=== PATIENT | male | born 1985 | race Caucasian/White ===

== ENCOUNTER 2016-08-06 15:34 | Outpatient (CLI) | payer OTHER ==
--- NOTE | 2016-08-06 21:33 | MRI Report ---
EXAM: MRI LUMBAR SPINE WITHOUT CONTRAST EXAM DATE: 08/06/2016 04:21 PM. CLINICAL HISTORY: Chronic mid and low back pain. Report also of intermittent left side radicular symp toms. COMPARISON: None. TECHNIQUE: Multiplanar, multisequence T1-weighted and fluid-sensitive sequences of the lumbar spine f rom T12 to S1 without contrast. Other: None. FINDINGS: Spinal Cord: The conus terminates at L1. No signal abnormality in the visualized spinal cord. Alignment: Normal. No scoliosis or spondylolisthesis. Bone Marrow: Five [id number] lumbar vertebral bodies are assumed. No gross fractures or bone les ions. No bone marrow edema. Disk Levels/Facets: T12-L1: Unremarkable. L1-L2: Unremarkable. L2-L3: Unremarkable. L3-L4: Unremarkable. L4-L5: Unremarkable. L5-S1: Shallow midline posterior disk protrusion. Minimal thecal sac indentation. No nerve root impin gement or stenosis. Minimal early facet arthropathy may be present. Musculature: Normal. No edema or fatty atrophy. Other: None. IMPRESSION: Minimal early degenerative changes at L5-S1. No lumbar stenosis. Comment: The following findings are so common in adults without low back pain that while we report th eir presence, they must be interpreted with caution and in the context of the clinical situation. (Re jacey Gamboa et al, Spine 2001) Prevalence of findings in patients without low back pain: Disk degeneration (any evidence): 92% Disk desiccation/T2 signal loss: 83% Disk height loss: 56% Disk bulge: 64% Disk protrusion: 32% Annular tear/high intensity zone: 38% [facility] Referring Provider Line: [phone] SITE ID: [id number]
--- NOTE | 2016-08-06 21:59 | MRI Report ---
EXAM: MRI THORACIC SPINE WITHOUT CONTRAST EXAM DATE: 08/06/2016 04:22 PM. CLINICAL HISTORY: Mid and low back pain. Intermittent left side radiculopathy. COMPARISONS: None. TECHNIQUE: Multiplanar, multisequence T1-weighted and fluid-sensitive sequences of the thoracic spine from C7 to L1 without contrast. Other: None. FINDINGS: Spinal Cord: No signal abnormality in the visualized spinal cord. Alignment: Normal. No scoliosis or spondylolisthesis. Bone Marrow: No gross fractures or bone lesion. No bone marrow edema. Disk Levels/Facets: C7-T1: Unremarkable. T1-T2: Unremarkable. T2-T3: Unremarkable. T3-T4: Unremarkable. T4-T5: Unremarkable. T5-T6: Unremarkable. T6-T7: Unremarkable. T7-T8: Unremarkable. T8-T9: Unremarkable. T9-T10: Unremarkable. T10-T11: Unremarkable. T11-T12: Unremarkable. T12-L1: Unremarkable. Musculature: Normal. No edema or fatty atrophy. Other: Images 1, 2 and 3 of series 801 show 4 separate small rounded foci of T2 hyperintensity in the liver, 3-10 mm, likely small cysts. IMPRESSION: Unremarkable MRI appearance of the thoracic spine. No acute abnormality, degenerative stalin nges or stenosis. No focal thoracic cord lesion. [facility] Referring Provider Line: [phone] SITE ID: [id number]
== END 2016-08-06 15:35 | disposition home or self-care (01) ==
LOC: DI 15:34
PROVIDERS: ATTEND Anesthesiology
DX: M51.27 Other intervertebral disc displacement, lumbosacral region (principal); M47.897 Other spondylosis, lumbosacral region
CPT/HCPCS: 72146; 72148

== ENCOUNTER 2016-10-18 16:15 | Outpatient (CLI) | payer OTHER ==
--- NOTE | 2016-10-20 09:05 | MRI Report ---
EXAM: RIGHT FOREFOOT MRI WITHOUT CONTRAST EXAM DATE: 10/18/2016 05:27 PM. CLINICAL HISTORY: Right foot injury. COMPARISON: None. TECHNIQUE: Multiplanar, multisequence T1-weighted and fluid-sensitive sequences of the forefoot witho ut contrast. Other: None. FINDINGS: Bones: There is marked marrow edema of the medial sesamoid of the first metatarsal. There is a low T1 /low T2 signal line in the coronal plane, consistent with a nondisplaced fracture of the medial sesam oid. There is surrounding soft tissue edema. There are no other visible fractures. Joints: There is mild osteoarthritis of the first metatarsophalangeal joint. Articular Cartilage: Mild thinning of the hyaline cartilage of the first metatarsophalangeal joint. Ligaments: The visualized collateral ligaments are intact. Tendons: There is fluid surrounding the flexor hallucis longus tendon close to its distal insertion, consistent with mild tenosynovitis. There is a small partial-thickness tear of the tendon immediately proximal to the sesamoids. The remaining flexor and extensor tendons appear normal. Musculature: No edema or fatty atrophy. Other: No intermetatarsal bursitis. The subcutaneous tissues are unremarkable. IMPRESSION: 1. Nondisplaced fracture or stress fracture of the medial sesamoid of the first metatarsal. Surroundi ng soft tissue edema and mild tenosynovitis of the flexor hallucis longus. 2. Partial-thickness tear of the flexor hallucis longus immediately proximal to the sesamoids. [facility] MUSCULOSKELETAL RADIOLOGY SECTION Referring Provider Line: [phone] SITE ID: [id number]
== END 2016-10-18 16:16 | disposition home or self-care (01) ==
LOC: DI 16:15
PROVIDERS: ATTEND Podiatrist
DX: S92.311A Displaced fracture of first metatarsal bone, right foot, initial encounter for closed fracture (principal); M65.871 Other synovitis and tenosynovitis, right ankle and foot; S96.011A Strain of muscle and tendon of long flexor muscle of toe at ankle and foot level, right foot, initial encounter

== ENCOUNTER 2017-04-14 19:50 | Emergency (ER) | payer OTHER ==
--- NOTE | 2017-04-14 21:21 | ED Physician Documentation ---
History of Present Illness - Stated complaint Stated Complaint: NECK/FACE PX - Chief complaint Chief Complaint: Heent - History obtained from History obtained from: Patient - History of Present Illness Timing: How many weeks ago (2.5) Pain level max: 6 Pain level now: 6 Improved by: nothing Worsened by: nothing - Additonal information Additional information: aching pain, swelling to the L side of the neck x2.5 weeks[place] . Pain increased today. Taking motrin at home. No recent illness. Review of Systems Constitutional: denies: Fever, Chills Ears: denies: Ear pain Nose: denies: Rhinorrhea / runny nose, Congestion Throat: denies: Sore throat Cardiac: denies: Chest pain / pressure Respiratory: denies: Cough, Wheezing GI: denies: Abdominal Pain, Nausea, Vomiting, Diarrhea PD PAST MEDICAL HISTORY - Past Medical History Past Medical History: Yes Cardiovascular: Hypertension : Kidney stones Psych: Anxiety - Past Surgical History Past Surgical History: Yes - Present Medications Home Medications: Ambulatory Orders Medication Instructions Recorded Confirmed Escitalopram Oxalate [Lexapro] 1 tab PO DAILY 04/14/17 04/14/17 Lisinopril 1 tab PO DAILY 04/14/17 04/14/17 - Allergies Allergies/Adverse Reactions: Allergies Allergy/AdvReac Type Severity Reaction Status Date / Time No Known Drug Allergies Allergy Verified 04/14/17 20:08 - Social History Does the pt smoke?: No Smoking Status: Never smoker Does the pt drink ETOH?: Yes ETOH Use: Beer Does the pt have substance abuse?: No - Immunizations Immunizations are current?: Yes - POLST Patient has POLST: No PD ED PE NORMAL - Vitals Vital signs reviewed: Yes - General General: Alert and oriented X 3, No acute distress - HEENT HEENT: Ears normal, Moist mucous membranes, Pharynx benign - Neck Neck: Supple, no meningeal sign, Other (TTP over the L SCM. No swelling noted. No overlying skin changes. ) - Cardiac Cardiac: RRR, Strong equal pulses - Respiratory Respiratory: No respiratory distress, Clear bilaterally - Derm Derm: Warm and dry, No rash - Neuro Neuro: Alert and oriented X 3 - Psych Psych: Normal mood, Normal affect Results - Vitals Vitals: Vital Signs - 24 hr 04/14/17 04/14/17 20:04 23:26 Temperature 37.1 C 36.3 C L Heart Rate 76 65 Respiratory 16 18 Rate Blood Pressure 145/93 H 141/85 H O2 Saturation 97 98 Oxygen O2 Source Room air - Labs Labs: Laboratory Tests 04/14/17 04/14/17 21:27 21:27 WBC 7.0 RBC 4.47 L Hgb 14.9 Hct 42.4 MCV 94.9 H MCH 33.3 H MCHC 35.1 RDW 12.9 Plt Count 223 MPV 10.1 Neut # 3.6 Lymph # 2.7 [place] # 0.6 Eos # 0.1 Baso # 0.0 Absolute Nucleated RBC 0.01 Nucleated RBC % 0.1 Sodium 136 Potassium 3.9 Chloride 104 Carbon Dioxide 21 Anion Gap 11.0 BUN 15 Creatinine 0.9 Estimated GFR (MDRD) 99 Glucose 113 H Calcium 9.3 - Rads (name of study) L neck US Radiology: Prelim report reviewed, EMP read contemporaneously, See rad report ( normal lymph nodes. normal US.) PD MEDICAL DECISION MAKING - ED course Complexity details: reviewed results, re-evaluated patient, considered differential, d/w patient, d/w family ED course: Patient is a 31-year-old male who presents to the emergency department with reported left-sided neck swelling. No visible swelling on exam. Normal ultrasound. Normal lab work. Given dexamethasone and will follow up with his doctor. No changes with eating. No dental issues. No evidence of sialoadenitis. Patient counseled regarding signs and symptoms for which I believe and urgent re-evaluation would be necessary. Patient with good understanding of and agreement to plan and is comfortable going home at this time This document was made in part using voice recognition software. While efforts are made to proofread this document, sound alike and grammatical errors may occur. Departure - Departure Disposition: 01 Home, Self Care Clinical Impression: Neck swelling Condition: Good Follow-Up: Renard Lopez MD [Primary Care Provider] - Within 1 week Comments: Your ultrasound is normal today. Your laboratory tests are normal. The cause of your symptoms is unclear. Please follow-up with your doctor for further evaluation and care. The steroids that you are given tonight should help decrease any swelling and pain. Return if you worsen Discharge Date/Time: 04/14/17 23:29
[2017-04-14 21:44] LABS: CALCIUM 9.3 mg/dL (8.5-10.3); CREATININE 0.9 mg/dL (0.6-1.2)
[2017-04-14 21:48] LABS: BASOPHILS % (AUTO) 0.7 %; EOSINOPHILS # (AUTO) 0.1 10^3/uL (0.0-0.7); EOSINOPHILS % (AUTO) 1.2 %; HGB - HEMOGLOBIN 14.9 g/dL (14.0-18.0); LYMPHOCYTES # (AUTO) 2.7 10^3/uL (1.5-3.5); LYMPHOCYTES % (AUTO) 38.4 %; MEAN CORPUSCULAR HEMOGLOBIN 33.3 pg (27.0-31.0); MEAN CORPUSCULAR HGB CONC 35.1 g/dL (32.0-36.0); MEAN CORPUSCULAR VOLUME 94.9 fL (80.0-94.0); MEAN PLATELET VOLUME 10.1 fL (7.4-11.4); MONOCYTES # (AUTO) 0.6 10^3/uL (0.0-1.0); MONOCYTES % (AUTO) 8.4 %; NEUTROPHILS # (AUTO) 3.6 10^3/uL (1.5-6.6); NEUTROPHILS % (AUTO) 51.3 %; PLT - PLATELET COUNT 223 10^3/uL (130-450); RED BLOOD COUNT 4.47 10^6/uL (4.70-6.10); RED CELL DISTRIBUTION WIDTH 12.9 % (12.0-15.0)
--- NOTE | 2017-04-14 23:09 | Ultrasound Preliminary Report ---
Exam: US HEAD OR NECK SOFT TISSUE IMPRESSION: 1. Multiple normal-sized left submandibular and cervical lymph nodes measuring up to 7 mm on the shor t axis. [facility] SITE ID: [id number]
--- NOTE | 2017-04-14 23:09 | Ultrasound Report ---
EXAM: NECK ULTRASOUND EXAM DATE: 04/14/2017 11:00 PM. CLINICAL HISTORY: L sided neck swelling x 2.5 weeks. COMPARISON: None. TECHNIQUE: Real-time sonographic imaging was performed by the septic tank service technician utilizing color-flow. Multi ple contact representative static images were saved for review. FINDINGS: Multiple left submandibular and cervical lymph nodes are seen measuring up to 7 mm on the s hort axis. No fluid collection is identified. No other solid masses seen. IMPRESSION: 1. Multiple normal-sized left submandibular and cervical lymph nodes measuring up to 7 mm on the shor t axis. [facility] Referring Provider Line: [phone] SITE ID: [id number]
[2017-04-14] MEDS ORDERED: DEXAMETHASONE 10 MG/ML VIAL PO STA (23:19)
[2017-04-14 23:27] VITALS: BP 141/85
[2017-04-14] MEDS ORDERED: CHERRY SYRUP 10 ML UDC PO ONE (23:28)
== END 2017-04-14 23:29 | disposition home or self-care (01) ==
LOC: ED 19:50
DX: R22.1 Localized swelling, mass and lump, neck (principal); I10 Essential (primary) hypertension
CPT/HCPCS: 36415; 76536; 80048; 85025; 99283; A9270

== ENCOUNTER 2019-06-20 14:37 | Emergency (ER) | payer OTHER ==
--- NOTE | 2019-06-20 14:58 | ED Physician Documentation ---
PD HPI MHE - Stated complaint Stated Complaint: MHE - Chief complaint Chief Complaint: MHE - History obtained from History obtained from: Patient - History of Present Illness Primary symptom: Suicidal ideation Contributing factors: Work Recently seen: Not recently seen - Additional information Additional information: There is a 33-year-old man who is in the [employer] presents with complaints that [place] health [place] evaluation because he is having thoughts of harming himself. He thought about burning himself with a propane at night or. He has had thoughts of harming himself off and on for about 3 years but they just got much worse this weekend and he just wants everything over. [place] psychologist up until about 5 months ago but then that psychologist retired and he felt like he was doing better so he never went in for more counseling. He does see the psychiatrist for medication management he is on Lexapro for depression and generalized anxiety disorder and he has Klonopin to use as needed. He did take some over the weekend. He was drinking heavily over the weekend probably a 12 pack a day but does not drink on a daily basis. He denies any suicide attempt in the past. He is apparently been requesting inpatient treatment from the [facility] but has not felt the he was qualified. He is facing an administrative separation from the [employer] which is quite stressful he lives with his who has cancer and their 2 children. He just feels overwhelmed. He denies any acute illness: No sore throat, stuffy nose, fever, vomiting. Denies any history of thyroid disorder or diabetes. Review of Systems Constitutional: denies: Fever Ears: denies: Ear pain Nose: denies: Congestion Throat: denies: Sore throat Cardiac: denies: Chest pain / pressure Respiratory: denies: Dyspnea, Cough GI: denies: Nausea, Vomiting : denies: Dysuria Psychiatric: reports: Suicidal, Anxiety PD PAST MEDICAL HISTORY - Past Medical History Past Medical History: Yes Cardiovascular: Hypertension Respiratory: None Neuro: None : Kidney stones HEENT: None Psych: Depression, Anxiety, Panic attacks - Past Surgical History Past Surgical History: Yes - Present Medications Home Medications: Ambulatory Orders Medication Instructions Recorded Confirmed Escitalopram Oxalate [Lexapro] 10 mg PO DAILY 04/14/17 06/20/19 lisinopriL [Lisinopril] 20 mg PO DAILY 04/14/17 06/20/19 Hydrochlorothiazide 12.5 mg PO DAILY 06/20/19 06/20/19 clonazePAM [KlonoPIN] 0.5 mg PO BID PRN 06/20/19 06/20/19 - Allergies Allergies/Adverse Reactions: Allergies Allergy/AdvReac Type Severity Reaction Status Date / Time No Known Drug Allergies Allergy Verified 06/20/19 14:42 - Social History Does the pt smoke?: No Smoking Status: Never smoker Does the pt drink ETOH?: Yes ETOH Use: Beer Does the pt have substance abuse?: No - Immunizations Immunizations are current?: Yes - POLST Patient has POLST: No PD ED PE NORMAL - Vitals Vital signs reviewed: Yes - General General: Alert and oriented X 3, No acute distress, Well developed/nourished - HEENT HEENT: Atraumatic, PERRL, EOMI, Moist mucous membranes, Pharynx benign - Neck Neck: Supple, no meningeal sign, No adenopathy, Thyroid normal - Cardiac Cardiac: RRR, No murmur, Strong equal pulses, Other (He is mildly tachycardic) - Respiratory Respiratory: No respiratory distress, Clear bilaterally - Abdomen Abdomen: Normal bowel sounds, Soft, Non tender, No organomegaly - Derm Derm: Normal color, Warm and dry, No rash - Extremities Extremities: No deformity, Normal ROM s pain, No edema - Neuro Neuro: Alert and oriented X 3, national business director 2-12 intact, No motor deficit, No sensory deficit, Normal speech - Psych Psych: Other (Speech is little rapid. Does not make good eye contact.) Results - Vitals Vitals: Vital Signs - 24 hr 06/20/19 06/20/19 06/20/19 14:42 15:27 16:28 Temperature 37.3 C 37.3 C 37 C Heart Rate 107 H 116 H 102 H Respiratory 18 18 18 Rate Blood Pressure 137/94 H 145/93 H 136/79 H O2 Saturation 96 97 96 06/20/19 18:42 Temperature 37.1 C Heart Rate 124 H Respiratory 20 Rate Blood Pressure 134/76 H O2 Saturation 97 Oxygen O2 Source Room air - Labs Labs: Laboratory Tests 06/20/19 06/20/19 06/20/19 15:20 15:20 15:20 WBC 6.2 RBC 4.95 Hgb 16.1 Hct 45.2 MCV 91.3 MCH 32.5 H MCHC 35.6 RDW 12.3 Plt Count 268 MPV 10.9 Neut # (Auto) 2.2 Lymph # (Auto) 3.6 H [place] # (Auto) 0.4 Eos # (Auto) 0.0 Baso # (Auto) 0.0 Absolute Nucleated RBC 0.00 Nucleated RBC % 0.0 Sodium 137 Potassium 3.7 Chloride 99 L Carbon Dioxide 24 Anion Gap 14.0 H BUN 6 Creatinine 0.8 Estimated GFR (MDRD) 112 Glucose 151 H Calcium 9.2 Total Bilirubin 1.2 H AST 52 H ALT 71 H Alkaline Phosphatase 66 Total Protein 8.4 H Albumin 5.1 Globulin 3.4 Albumin/Globulin Ratio 1.5 Lipase 32 TSH 0.97 Urine Color Urine Clarity Urine pH Ur Specific Leslie Urine Protein Urine Glucose (UA) Urine Ketones Urine Occult Blood Urine Nitrite Urine Bilirubin Urine Urobilinogen Ur Leukocyte Esterase Ur Microscopic Review Urine Culture Comments Salicylates < 6.0 Urine Opiates Screen Ur Oxycodone Screen Urine Methadone Screen Ur Propoxyphene Screen Acetaminophen < 10 L Ur Barbiturates Screen Ur Tricyclics Screen Ur Phencyclidine Scrn Ur Amphetamine Screen U Methamphetamines Scrn U Benzodiazepines Scrn Urine Cocaine Screen U Cannabinoids Screen Ethyl Alcohol 189.5 06/20/19 06/20/19 15:20 15:20 WBC RBC Hgb Hct MCV MCH MCHC RDW Plt Count MPV Neut # (Auto) Lymph # (Auto) [place] # (Auto) Eos # (Auto) Baso # (Auto) Absolute Nucleated RBC Nucleated RBC % Sodium Potassium Chloride Carbon Dioxide Anion Gap BUN Creatinine Estimated GFR (MDRD) Glucose Calcium Total Bilirubin AST ALT Alkaline Phosphatase Total Protein Albumin Globulin Albumin/Globulin Ratio Lipase TSH Urine Color YELLOW Urine Clarity CLEAR Urine pH 7.0 Ur Specific Leslie 1.015 Urine Protein NEGATIVE Urine Glucose (UA) NEGATIVE Urine Ketones NEGATIVE Urine Occult Blood NEGATIVE Urine Nitrite NEGATIVE Urine Bilirubin NEGATIVE Urine Urobilinogen 0.2 (NORMAL) Ur Leukocyte Esterase NEGATIVE Ur Microscopic Review NOT INDICATED Urine Culture Comments NOT INDICATED Salicylates Urine Opiates Screen NEGATIVE Ur Oxycodone Screen NEGATIVE Urine Methadone Screen NEGATIVE Ur Propoxyphene Screen NEGATIVE Acetaminophen Ur Barbiturates Screen NEGATIVE Ur Tricyclics Screen NEGATIVE Ur Phencyclidine Scrn NEGATIVE Ur Amphetamine Screen NEGATIVE U Methamphetamines Scrn NEGATIVE U Benzodiazepines Scrn POSITIVE H Urine Cocaine Screen NEGATIVE U Cannabinoids Screen POSITIVE H Ethyl Alcohol 196.2 PD MEDICAL DECISION MAKING - ED course Complexity details: reviewed results, d/w patient ED course: Patient's blood alcohol was initially over 180. Drug screen was positive for marijuana. He started to have a little anxiety so he was given a the remainder of the screening labs were normal, with the exception of a mild elevation of the bilirubin and mild elevation of the liver enzymes. A repeat alcohol is been ordered and the patient will be turned over to the oncoming ER physician for further management and final disposition. 1848: The nursing staff just approached me stating that the patient was becoming more agitated he was very tremulous heart rate was up to 120 he is ordered for 2 mg of Ativan p.o. It is unclear how much of this is related alcohol withdrawal versus just anxiety.
[2019-06-20] MEDS ORDERED: SODIUM CHLORIDE 0.9% 1,000 ML IV ONE (15:09)
[2019-06-20 15:30] LABS: MUDS CUTOFF CONCENTRATIONS CUTOFF CONC BELOW:
[2019-06-20 15:43] LABS: BILIRUBIN,URINE NEGATIVE (NEGATIVE); GLUCOSE, URINE (UA) NEGATIVE (NEGATIVE); KETONES,URINE (UA) NEGATIVE (NEGATIVE); LEUKOCYTE ESTERASE, URINE NEGATIVE (NEGATIVE); NITRITE,URINE NEGATIVE (NEGATIVE); OCCULT BLOOD,URINE NEGATIVE (NEGATIVE); PROTEIN,URINE NEGATIVE (NEGATIVE); UROBILINOGEN,URINE 0.2 (NORMAL) E.U./dL (NORMAL)
[2019-06-20] MEDS ORDERED: LORazepam 2 MG/ML VIAL IVP STA (15:43)
[2019-06-20 15:44] LABS: CLARITY,URINE CLEAR (CLEAR)
[2019-06-20 15:45] LABS: BASOPHILS % (AUTO) 0.3 %; EOSINOPHILS % (AUTO) 0.3 %; HGB - HEMOGLOBIN 16.1 g/dL (14.0-18.0); LYMPHOCYTES # (AUTO) 3.6 10^3/uL (1.5-3.5); MEAN CORPUSCULAR HEMOGLOBIN 32.5 pg (27.0-31.0); MEAN CORPUSCULAR HGB CONC 35.6 g/dL (32.0-36.0); MEAN CORPUSCULAR VOLUME 91.3 fL (80.0-94.0); MEAN PLATELET VOLUME 10.9 fL (7.4-11.4); MONOCYTES # (AUTO) 0.4 10^3/uL (0.0-1.0); MONOCYTES % (AUTO) 6.3 %; NEUTROPHILS # (AUTO) 2.2 10^3/uL (1.5-6.6); NEUTROPHILS % (AUTO) 34.9 %; PLT - PLATELET COUNT 268 10^3/uL (130-450); RED BLOOD COUNT 4.95 10^6/uL (4.70-6.10); RED CELL DISTRIBUTION WIDTH 12.3 % (12.0-15.0); WHITE BLOOD COUNT 6.2 x10^3/uL (4.8-10.8)
[2019-06-20 15:47] LABS: ACETAMINOPHEN < 10 ug/mL (10-30); ALBUMIN 5.1 g/dL (3.2-5.5); ALBUMIN/GLOBULIN RATIO 1.5 (1.0-2.2); ALKALINE PHOSPHATASE 66 IU/L (42-121); ALT ALANINE AMINOTRANSFERASE 71 IU/L (10-60); AST ASPARTATE AMINOTRANSFERASE 52 IU/L (10-42); BILIRUBIN,TOTAL 1.2 mg/dL (0.2-1.0); BUN - BLOOD UREA NITROGEN 6 mg/dL (6-20); CALCIUM 9.2 mg/dL (8.5-10.3); CARBON DIOXIDE - CO2 24 mmol/L (21-32); CHLORIDE 99 mmol/L (101-111); CREATININE 0.8 mg/dL (0.6-1.2); GLUCOSE 151 mg/dL (70-100); LIPASE 32 U/L (22-51); SALICYLATE < 6.0 mg/dL; SODIUM 137 mmol/L (135-145); TOTAL PROTEIN 8.4 g/dL (6.7-8.2)
[2019-06-20 15:55] LABS: AMPHETAMINE SCREEN,URINE NEGATIVE (NEGATIVE); BENZODIAZEPINES SCREEN, URINE POSITIVE (NEGATIVE); COCAINE SCREEN URINE NEGATIVE (NEGATIVE); METHADONE SCREEN, URINE NEGATIVE (NEGATIVE); METHAMPHETAMINES SCREEN, URINE NEGATIVE (NEGATIVE); OPIATE SCREEN, URINE NEGATIVE (NEGATIVE); OXYCODONE SCREEN, URINE NEGATIVE (NEGATIVE); PROPOXYPHENE SCREEN, URINE NEGATIVE (NEGATIVE); TRICYCLIC ANTIDEPRESSANT,URINE NEGATIVE (NEGATIVE)
[2019-06-20] MEDS ORDERED: LORazepam 1 MG TABLET PO STA (18:47)
[2019-06-20] MEDS ORDERED: LORazepam 2 MG/ML VIAL ONE (20:48)
--- NOTE | 2019-06-21 00:37 | TELEPSYCH PHYS NOTE ---
Telepsych Note - CHIEF COMPLAINT/HX OF PRESENT ILLNESS Cheif Complaint and History of Present Illness: Name: Anthony Mascorro : 87 Date: 06/21/19 Location of patient: [facility] ED Time: 2:55am Location of doctor: [facility] This evaluation was conducted via telepsychiatry with the assistance of onsite staff Chief Complaint: SI History of Present Illness: Pt seen by televideo with help from the onsite staff. Pt is a 33 yo male with a hx of depression. Pt reports no previous of inpt psychiatric admissions. He is currently in the [place]. [place] Pt presented to the ED, seeking help and treatment for worsening depression, SI with specific plan. Noted a specific plan to burn himself with a propane clinical account liaison. Pt states that he has been experiencing waxing and waning depressive sxs for the past 3 years. States he is currently on Lexapro 20mg. States however he feels that he has been more activated and less inhibited on the medication. States that over the past few months his depression has been significantly worse. Cites mounting stressors and pressures. Stressors include his has stage 4 CA with liver Mets, facing administrative separation from the related to etoh abuse and fraternization, and financial concerns. States as the process has continued, he feels less optimistic about his chances. States he needs character witnesses and having a difficult time securing these. States he has a lot of guilt related to his behaviors and ultimately that he may be from the [employer] which will ultimately cause him to lose the insurance that his needs to fight her CA. States he is breaking and unable to cope. Pt admits that he has been drinking more excessively to self-medicate. On ROS, pt denies AVHs, delusions nor HI. Notes increasing SI and yesterday with SI with specific plan. Pt is presenting with significantly worsening depressive sxs in the context of mounting stressors and inability to cope. He presents as a danger to himself and will require acute inpt psychiatric admission for safety, stabilization and treatment. Pt is voluntary for inpt treatment. Collateral: Chart review and hospital staff. Also spoke to the pts , Gisselle @ [phone] who reports concerns for his safety. States he is not handling the stress in his life which is building. States he has been increasingly more depressed and she feels he needs the treatment. States he has been trying to get treatment or additional services. SI: increasing SI thoughts now with specific plan. Trauma history: denies Access to weapons: denies Legal: denies Psychiatric History/Treatment History: no inpt treatment. Current outpt treatment. Medical History: none acute reported Medications & Freq: lexapro 20mg po Daily Allergies: Mellaril, tetanus Substance Use: ETOH Family Psych History/History of suicide: none reported Social Hx: , active in the [employer], + children. Lives with family. MSE: Appearance and attire: hospital attire Attitude and behavior: cooperative Affect and mood: im going crazy / reactive. Speech: rapid Association and thought processes: disorganized Thought content paranoid and delusional. Denies SI/HI Perception: + AHs. Denies VHs. Sensorium, memory, and orientation: AxOx3 Intellectual functioning: unable to assess Insight and judgment: impaired. - SI/HI/SELF HARM SI/HI/SELF HARM (CURRENT OR HISTORY OF):: SI - PSYCHIATRIC HX/TREATMENT HX Psychiatric: Depression, Anxiety, Panic attacks - DRUG/ALCOHOL HX ETOH Use: Beer Number: 4 - MEDICAL HX Does the pt have a hx of MRSA?: No Neurological History: None Eyes, Ears, Nose, Throat: None Cardiovascular: Hypertension Respiratory: None Urinary: Kidney stones - HOME MEDICATIONS Home Meds (as last confirmed): Patient History Medication Instructions Recorded Confirmed Escitalopram Oxalate [Lexapro] 10 mg PO DAILY 04/14/17 06/20/19 lisinopriL [Lisinopril] 20 mg PO DAILY 04/14/17 06/20/19 Hydrochlorothiazide 12.5 mg PO DAILY 06/20/19 06/20/19 clonazePAM [KlonoPIN] 0.5 mg PO BID PRN 06/20/19 06/20/19 - ALLERGIES Allergies (as last confirmed): Allergies Allergy/AdvReac Type Severity Reaction Status Date / Time No Known Drug Allergies Allergy Verified 06/20/19 14:42 - TREATMENT/PHARMACOLOGICAL RECOMMENDATION Treatment - Pharmacological - Therapy Recommendations: Diagnosis: 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 He presents as a danger to himself and will require acute inpt psychiatric admission for safety, stabilization and treatment. Pt is voluntary for inpt treatment. Recommendations: Pt requires acute inpt psychiatric admission For safety, stabilization and treatment. Pt is voluntary for inpt treatment Should the pt no longer agree to voluntary admission, he cannot leave and will require involuntary placement. JOSEWA, per ED protocol. - TIME SPENT & PROVIDER LOCATION Telepsych consultation conducted via videoconferencing: Yes List names and roles of persons who participated in consult: alpa Mascorro Telepsych Provider Location: [place] Time Telepsych consult began: 02:55 Time Telepsych consult completed: 03:12
[2019-06-21] MEDS ORDERED: LORazepam 2 MG/ML VIAL IVP STA (06:29)
[2019-06-21 08:41] VITALS: BP 159/101
[2019-06-21] MEDS ORDERED: hydroCHLOROthiazide 25 MG TABLET PO STA (08:43)
[2019-06-21] MEDS ORDERED: lisinopriL 5 MG TABLET PO STA (08:43)
--- NOTE | 2019-06-21 09:45 | ED Physician Documentation ---
ED Addendum - Addendum Addendum: 06/21/19 09:44 The patient was resting comfortably this morning. He had gotten a dose of Ativan prior to change of shift this morning. He had not had his morning blood pressure medicines as yet so was given those at his regular doses. No further problems at this time and he is going to be picked up by a EMS for transfer for psychiatric hospitalization. Disposition transfer to psychiatric hospital in stable condition Diagnosis depression
== END 2019-06-21 09:40 ==
LOC: ED 14:37
DX: F32.9 Major depressive disorder, single episode, unspecified (principal); I10 Essential (primary) hypertension
CPT/HCPCS: 36415; 80320; 80329; 81003; 83690; 96361; 96374; 96376; 99284; 99285; A9270; J2060; J8499; 80053; 80306; 80307; 81001; 84443; 85025; 87086

== ENCOUNTER 2019-10-03 22:29 | Emergency (ER) | payer OTHER ==
[2019-10-03] MEDS ORDERED: KETOROLAC 30 MG/ML VIAL IVP STA (22:42)
[2019-10-03] MEDS ORDERED: ONDANSETRON 4 MG/2 ML VIAL IVP STA (22:42)
[2019-10-03] MEDS ORDERED: SODIUM CHLORIDE 0.9% 1,000 ML IV STA (22:42)
--- NOTE | 2019-10-03 22:45 | ED Physician Documentation ---
PD HPI ABD PAIN - Stated complaint Stated Complaint: RIGHT SIDE PX - Chief complaint Chief Complaint: Abd Pain - History obtained from History obtained from: Patient - History of Present Illness Timing - onset: Today Timing - duration: Minutes Timing - details: Abrupt onset, Still present Quality: Sharp, Pain Location: RLQ Radiation: Right flank Improved by: Other (nothing) Worsened by: Other (nothing) Associated symptoms: Nausea. No: Fever, Vomiting Similar symptoms before: Diagnosis (kidney stone on the left) Recently seen: Not recently seen - Additional information Additional information: Previously well 33-year-old male was having a bowel movement today when he finished having a bowel movement he developed some sharp pain in the right lower quadrant which radiated into the right flank. He has some nausea and pain in the right flank. Review of Systems Constitutional: denies: Fever, Chills, Myalgias Ears: denies: Ear pain Nose: denies: Congestion Throat: denies: Sore throat Respiratory: denies: Cough GI: reports: Abdominal Pain, Nausea. denies: Vomiting, Constipation, Diarrhea : denies: Dysuria, Frequency PD PAST MEDICAL HISTORY - Past Medical History Cardiovascular: Hypertension Respiratory: None Neuro: None : Kidney stones HEENT: None Psych: Depression, Anxiety, Panic attacks - Past Surgical History Past Surgical History: Yes - Present Medications Home Medications: Ambulatory Orders Medication Instructions Recorded Confirmed Escitalopram Oxalate [Lexapro] 10 mg PO DAILY 04/14/17 06/20/19 lisinopriL [Lisinopril] 20 mg PO DAILY 04/14/17 06/20/19 Hydrochlorothiazide 12.5 mg PO DAILY 06/20/19 06/20/19 clonazePAM [KlonoPIN] 0.5 mg PO BID PRN 06/20/19 06/20/19 Hydrocodone/Acetaminophen 1 - 2 each PO Q6H PRN #14 tablet 10/03/19 [Hydrocodon-Acetaminophen 5-325] Ondansetron Odt [Zofran] 4 mg TL Q6H PRN #10 tablet 10/04/19 - Allergies Allergies/Adverse Reactions: Allergies Allergy/AdvReac Type Severity Reaction Status Date / Time No Known Drug Allergies Allergy Verified 10/03/19 22:37 - Social History Does the pt smoke?: No Smoking Status: Never smoker Does the pt drink ETOH?: Yes Does the pt have substance abuse?: No - Immunizations Immunizations are current?: Yes - POLST Patient has POLST: No PD ED PE NORMAL - Vitals Vital signs reviewed: Yes (tachy and hypertensive ) - General General: Alert and oriented X 3, Well developed/nourished, Other (grunting in pain ) - HEENT HEENT: Atraumatic, PERRL, EOMI - Neck Neck: Supple, no meningeal sign, No bony TTP - Cardiac Cardiac: No murmur, Other (tachy to 100) - Respiratory Respiratory: No respiratory distress, Clear bilaterally - Abdomen Abdomen: Normal bowel sounds, Soft, Non tender, Non distended, No organomegaly - Back Back: No CVA TTP, No spinal TTP - Derm Derm: Normal color, Warm and dry, No rash - Extremities Extremities: No deformity, No edema, No calf tenderness / cord - Neuro Neuro: Alert and oriented X 3, 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, No motor deficit, No sensory deficit, Normal speech Eye Opening: Spontaneous Motor: Obeys Commands Verbal: Oriented GCS Score: 15 - Psych Psych: Normal mood, Normal affect Results - Vitals Vitals: Vital Signs - 24 hr 10/03/19 10/03/19 22:36 23:37 Temperature 37.2 C Heart Rate 110 H 90 Respiratory 20 18 Rate Blood Pressure 161/116 H 144/95 H O2 Saturation 99 98 Oxygen O2 Source Room air - Labs Labs: Laboratory Tests 10/03/19 10/03/19 10/03/19 22:38 22:38 23:56 WBC 8.2 RBC 4.52 L Hgb 14.7 Hct 39.6 L MCV 87.6 MCH 32.5 H MCHC 37.1 H RDW 12.6 Plt Count 238 MPV 11.1 Neut # (Auto) 3.9 Lymph # (Auto) 3.6 H [place] # (Auto) 0.5 Eos # (Auto) 0.1 Baso # (Auto) 0.0 Absolute Nucleated RBC 0.00 Nucleated RBC % 0.0 Sodium 139 Potassium 3.4 L Chloride 107 Carbon Dioxide 22 Anion Gap 10.0 BUN 15 Creatinine 1.3 H Estimated GFR (MDRD) 64 L Glucose 109 H Calcium 9.1 Total Bilirubin 0.8 AST 17 ALT 23 Alkaline Phosphatase 71 Total Protein 7.5 Albumin 4.5 Globulin 3.0 Albumin/Globulin Ratio 1.5 Lipase 35 Urine Color YELLOW Urine Clarity CLEAR Urine pH 5.5 Ur Specific Gobles >=1.030 H Urine Protein NEGATIVE Urine Glucose (UA) NEGATIVE Urine Ketones TRACE Urine Occult Blood LARGE H Urine Nitrite NEGATIVE Urine Bilirubin NEGATIVE Urine Urobilinogen 0.2 (NORMAL) Ur Leukocyte Esterase NEGATIVE Urine RBC TNTC H Urine WBC 0-3 Ur Squamous Epith Cells RARE Squamous Urine Bacteria Rare Ur Microscopic Review INDICATED Urine Culture Comments NOT INDICATED - Rads (name of study) CT ab/pel w/o Radiology: Prelim report reviewed (Impression: Distal right ureteral calculus. Mild right hydronephrosis and ureterectasis. Nonemergent/incidental findings in the report.), EMP read indepedently, See rad report Procedures - Bedside sono Bedside sono by EMP: With use of bedside ultrasound the right kidney is imaged it is sonographically nontender and there is evidence of hydronephrosis. PD MEDICAL DECISION MAKING - ED course Complexity details: reviewed old records, reviewed results, re-evaluated patient, considered differential, d/w patient ED course: 33-year-old male with acute right flank pain consistent with kidney stone has nonmodifiable pain has a nontender right kidney on sonographic palpation and has evidence of hydronephrosis. An IV is begun he is given a liter of saline 30 mg of Toradol and 4 mg of Zofran. A CT scan of the abdomen pelvis is undertaken. The CT confirms a stone in the right collecting system causing some hydro and about 3mm X 6mm at the UVJ. The patient requires dilaudid for pain control and has improvement with pain and blood pressure. Departure - Departure Disposition: 01 Home, Self Care Clinical Impression: Ureterolithiasis Condition: Stable Instructions: ED Stone Renal W Colic Follow-Up: Olman Phillips MD [Provider Admit Priv/Credential] - Prescriptions: Hydrocodone/Acetaminophen [Hydrocodon-Acetaminophen 5-325] 1 - 2 each PO Q6H PRN #14 tablet PRN Reason: pain Ondansetron Odt [Zofran] 4 mg TL Q6H PRN #10 tablet PRN Reason: Nausea / Vomiting
[2019-10-03 22:46] LABS: BASOPHILS % (AUTO) 0.5 %; EOSINOPHILS # (AUTO) 0.1 10^3/uL (0.0-0.7); EOSINOPHILS % (AUTO) 1.3 %; HGB - HEMOGLOBIN 14.7 g/dL (14.0-18.0); LYMPHOCYTES # (AUTO) 3.6 10^3/uL (1.5-3.5); LYMPHOCYTES % (AUTO) 43.9 %; MEAN CORPUSCULAR HEMOGLOBIN 32.5 pg (27.0-31.0); MEAN CORPUSCULAR HGB CONC 37.1 g/dL (32.0-36.0); MEAN CORPUSCULAR VOLUME 87.6 fL (80.0-94.0); MEAN PLATELET VOLUME 11.1 fL (7.4-11.4); MONOCYTES # (AUTO) 0.5 10^3/uL (0.0-1.0); MONOCYTES % (AUTO) 6.3 %; NEUTROPHILS # (AUTO) 3.9 10^3/uL (1.5-6.6); NEUTROPHILS % (AUTO) 47.8 %; PLT - PLATELET COUNT 238 10^3/uL (130-450); RED BLOOD COUNT 4.52 10^6/uL (4.70-6.10); RED CELL DISTRIBUTION WIDTH 12.6 % (12.0-15.0); WHITE BLOOD COUNT 8.2 x10^3/uL (4.8-10.8)
[2019-10-03 22:58] LABS: ALBUMIN 4.5 g/dL (3.2-5.5); ALBUMIN/GLOBULIN RATIO 1.5 (1.0-2.2); BILIRUBIN,TOTAL 0.8 mg/dL (0.2-1.0); CALCIUM 9.1 mg/dL (8.5-10.3); CREATININE 1.3 mg/dL (0.6-1.2); TOTAL PROTEIN 7.5 g/dL (6.7-8.2)
[2019-10-03] MEDS ORDERED: HYDROmorphone 1 MG/ML CARPUJECT IVP STA (23:06)
[2019-10-03 23:39] VITALS: BP 144/95
[2019-10-03] MEDS ORDERED: HYDROcod/ACET 5/325 Prepack 4 PO STA (23:50)
[2019-10-03 23:59] LABS: BILIRUBIN,URINE NEGATIVE (NEGATIVE); GLUCOSE, URINE (UA) NEGATIVE (NEGATIVE); KETONES,URINE (UA) TRACE mg/dL (NEGATIVE); LEUKOCYTE ESTERASE, URINE NEGATIVE (NEGATIVE); NITRITE,URINE NEGATIVE (NEGATIVE); OCCULT BLOOD,URINE LARGE (NEGATIVE); PH,URINE 5.5 PH (5.0-7.5); PROTEIN,URINE NEGATIVE (NEGATIVE); UROBILINOGEN,URINE 0.2 (NORMAL) E.U./dL (NORMAL)
[2019-10-04] LABS: CLARITY,URINE CLEAR (CLEAR)
[2019-10-04 00:07] LABS: BACTERIA,URINE Rare /HPF (None Seen); RBC,URINE TNTC /HPF (0-5); SQUAMOUS EPITHELIAL CELL,UR RARE Squamous (<= Few)
[2019-10-04] MEDS ORDERED: ONDANSETRON ODT 4 MG Prepack 2 TL PRN (00:14)
--- NOTE | 2019-10-04 08:25 | CT Report ---
PROCEDURE: Abdomen/Pelvis WO INDICATIONS: right flank pain TECHNIQUE: Noncontrast 5 mm thick sections acquired from the diaphragms to the symphysis. 5 mm coronal and sagi ttal reformats were then performed. For radiation dose reduction, the following was used: automated exposure control, adjustment of mA and/or kV according to patient size. COMPARISON: None. FINDINGS: Image quality: Excellent. ABDOMEN: Lung bases: Lung bases are clear. Heart size is normal. Solid organs: Liver and spleen are normal in size. A few scattered hepatic hypodensities are too sm all to accurately characterize but likely represent cysts versus hemangiomas. Gallbladder is decompre ssed. Pancreas is normal in contours. No adrenal nodules. There is a 3 mm nonobstructing left neph rolith. Left ureter is normal in course and caliber. No left hydronephrosis. On the right, there is a n obstructing 6 mm distal right ureteral stone with associated right hydroureteronephrosis. There are a few tiny punctate right renal stones. No significant right perinephric stranding. The spleen is at the upper limits of normal for size. Peritoneum and bowel: Unenhanced bowel loops demonstrate normal wall thickness and caliber. No free fluid or air. Nodes and vessels: No retroperitoneal or mesenteric adenopathy by size criteria. Aorta and inferior vena cava are normal in caliber. Miscellaneous: No ventral hernias. PELVIS: Genitourinary: Bladder wall thickness is normal. Miscellaneous: No inguinal hernias or adenopathy. Bones: No suspicious bony lesions. No vertebral body compression fractures. IMPRESSION: 1. Obstructing 6 mm distal right ureteral stone with associated right hydroureteronephrosis. 2. Small punctate bilateral renal stones. No hydronephrosis on the left. 3. Borderline splenomegaly. 4. Numerous scattered subcentimeter hepatic hypodensities which are too small to accurately character ize but likely represent cysts versus hemangiomas. No significant discrepancy with initial interpretation by overnight radiologist. Reviewed by: Dejuan Machado MD on 10/04/2019 8:24 AM PDT Approved by: Dejuan Machado MD on 10/04/2019 8:24 AM PDT Station ID: [id number]
== END 2019-10-04 00:22 | disposition home or self-care (01) ==
LOC: ED 22:29
DX: N13.2 Hydronephrosis with renal and ureteral calculous obstruction (principal); R00.0 Tachycardia, unspecified; I10 Essential (primary) hypertension
CPT/HCPCS: 36415; 74176; 80053; 81001; 83690; 85025; 96361; 96374; 96375; 99284; J1170; 81003; 87086

== ENCOUNTER 2019-10-05 07:17 | Emergency (ER) | payer OTHER ==
[2019-10-05] MEDS ORDERED: ONDANSETRON 4 MG/2 ML VIAL IVP STA ×2 (07:21→09:21)
[2019-10-05] MEDS ORDERED: HYDROmorphone 1 MG/ML CARPUJECT IVP STA ×2 (07:21→08:02)
[2019-10-05] MEDS ORDERED: SODIUM CHLORIDE 0.9% 1,000 ML IV STA (07:21)
--- NOTE | 2019-10-05 07:29 | ED Physician Documentation ---
PD HPI ABD PAIN - Stated complaint Stated Complaint: R SIDE PX - History obtained from History obtained from: Patient - Additional information Additional information: 33-year-old gentleman, active duty in the [employer], history of Left-sided lith otripsy and stenting in [place] a couple of years ago. He was seen here 2 days ago for right flank and abdominal pain and diagnosed with a 6 mm obstructing right UVJ stone. His creatinine was slightly high at that time at 1.3. And there was blood in the urine. The remainder of the work-up was negative. He was sent home with Vicodin. He has more severe pain still in the right lower quadrant and right side today with vomiting. Review of Systems Ten Systems: 10 systems reviewed and negative Constitutional: reports: Reviewed and negative Cardiac: denies: Chest pain / pressure, Palpitations Respiratory: denies: Dyspnea, Cough PD PAST MEDICAL HISTORY - Past Medical History Cardiovascular: Hypertension Respiratory: None Neuro: None : Kidney stones HEENT: None Psych: Depression, Anxiety, Panic attacks - Past Surgical History Past Surgical History: Yes - Present Medications Home Medications: Ambulatory Orders Medication Instructions Recorded Confirmed Escitalopram Oxalate [Lexapro] 10 mg PO DAILY 04/14/17 06/20/19 lisinopriL [Lisinopril] 20 mg PO DAILY 04/14/17 06/20/19 Hydrochlorothiazide 12.5 mg PO DAILY 06/20/19 06/20/19 clonazePAM [KlonoPIN] 0.5 mg PO BID PRN 06/20/19 06/20/19 Hydrocodone/Acetaminophen 1 - 2 each PO Q6H PRN #14 tablet 10/03/19 [Hydrocodon-Acetaminophen 5-325] Ondansetron Odt [Zofran] 4 mg TL Q6H PRN #10 tablet 10/04/19 Ketorolac [Toradol] 10 mg PO Q6H PRN #14 tablet 10/05/19 Ondansetron Odt [Zofran] 4 mg TL Q6H PRN #10 tablet 10/05/19 Oxycodone HCl/Acetaminophen 1 - 2 each PO Q6H PRN #20 tablet 10/05/19 [Percocet 5-325 mg Tablet] - Allergies Allergies/Adverse Reactions: Allergies Allergy/AdvReac Type Severity Reaction Status Date / Time No Known Drug Allergies Allergy Verified 10/05/19 07:45 - Social History Does the pt smoke?: No Smoking Status: Never smoker Does the pt drink ETOH?: Yes Does the pt have substance abuse?: No - Family History Family history: reports: Non contributory - Immunizations Immunizations are current?: Yes - POLST Patient has POLST: No PD ED PE NORMAL - Vitals Vital signs reviewed: Yes - General General: Alert and oriented X 3 (Appears uncomfortable) - HEENT HEENT: PERRL, EOMI - Neck Neck: Supple, no meningeal sign, No bony TTP - Cardiac Cardiac: RRR, No murmur - Respiratory Respiratory: No respiratory distress, Clear bilaterally - Abdomen Abdomen: Normal bowel sounds, Soft, Non tender - Back Back: No CVA TTP, No spinal TTP - Derm Derm: Normal color, Warm and dry - Extremities Extremities: No edema, No calf tenderness / cord - Neuro Neuro: Alert and oriented X 3, Normal speech Results - Vitals Vitals: Vital Signs - 24 hr 10/05/19 10/05/19 10/05/19 07:41 08:30 09:00 Temperature 36.7 C Heart Rate 104 H 88 66 Respiratory 18 18 16 Rate Blood Pressure 146/106 H 136/101 H 126/81 H O2 Saturation 99 100 93 Oxygen O2 Source Room air - Labs Labs: Laboratory Tests 10/05/19 07:38 Sodium 140 Potassium 3.3 L Chloride 107 Carbon Dioxide 22 Anion Gap 11.0 BUN 12 Creatinine 1.3 H Estimated GFR (MDRD) 64 L Glucose 118 H Calcium 8.8 PD MEDICAL DECISION MAKING - ED course ED course: 33-year-old gentleman with known 3 x 6 mm obstructing right UVJ stone. Creatinine stable from 2 days ago. Pain very difficult to control. Call placed to [facility] urology at 8:05 AM for consultation and possible transfer for removal. Spoke with Dr. Bolivar at [facility], felt there was no need for urgent transfer. Recommended escalation of pain medications and she he should call her office today. We were eventually able to control his pain here using multiple doses of medications, Departure - Departure Disposition: 01 Home, Self Care Clinical Impression: Ureterolithiasis Condition: Stable Record reviewed to determine appropriate education?: Yes Instructions: ED Stone Renal W Colic Follow-Up: Reanna Carvalho MD [Physician No Access] - Prescriptions: Oxycodone HCl/Acetaminophen [Percocet 5-325 mg Tablet] 1 - 2 each PO Q6H PRN #20 tablet PRN Reason: pain Ketorolac [Toradol] 10 mg PO Q6H PRN #14 tablet PRN Reason: Pain Ondansetron Odt [Zofran] 4 mg TL Q6H PRN #10 tablet PRN Reason: Nausea / Vomiting Comments: Call both your PCM and your primary care physician today for expedited follow- up. Return for new or worsening symptoms. Do not drink or drive while taking narcotic pain medication. Note that many narcotic pain relievers also contain Tylenol/acetaminophen. Please ensure that your total dose of acetaminophen from all sources does not exceed 3 g (3000 mg) per day. You may get constipated while on this medication. Take a stool softener such as Colace twice a day while you are on it. Also add an [id number] laxative such as senna or MiraLAX on any day that you do not have a bowel movement. If you received a narcotic pain medication or sedative while in the emergency department, do not drive for the next 24 hours. Forms: Activity restrictions
[2019-10-05 07:52] LABS: CALCIUM 8.8 mg/dL (8.5-10.3); CREATININE 1.3 mg/dL (0.6-1.2)
[2019-10-05] MEDS ORDERED: KETOROLAC 30 MG/ML VIAL IVP STA (08:02)
[2019-10-05] MEDS ORDERED: METOCLOPRAMIDE 10 MG/2 ML VIAL IVP STA (08:30)
[2019-10-05 09:39] VITALS: BP 123/62
== END 2019-10-05 09:45 | disposition home or self-care (01) ==
LOC: ED 07:17
DX: N20.1 Calculus of ureter (principal)
CPT/HCPCS: 36415; 80048; 96361; 96374; 96375; 96376; 99285; J1170; J2765

== ENCOUNTER 2019-11-01 07:10 | Day surgery (SDC) | payer OTHER ==
[2019-11-01] MEDS ORDERED: CEFAZOLIN SODIUM IN 0.9 % NACL 2 GM/100 ML BAG IV ONE (07:36)
[2019-11-01] MEDS ORDERED: LACTATED RINGERS 1,000 ML IV ONE ×2 (07:55→10:38)
[2019-11-01] MEDS ORDERED: BUPIVACAINE 0.25% PF 30 ML VIAL ONE (07:56)
--- NOTE | 2019-11-01 08:18 | ANESTHESIA ---
Pre-Anesthesia VS, & Labs - Diagnosis Cubital Tunnel Syndron - Procedure Left Cubital Tunnel Release Vital Signs: Temp Pulse Resp BP Pulse Ox 36.9 C 80 19 140/87 H 98 11/01/19 07:35 11/01/19 07:35 11/01/19 07:35 11/01/19 07:35 11/01/19 07:35 Height 5 ft 9 in Weight (kg) 95.25 kg Body Mass Index 31.0 Home Medications and Allergies Home Medications: Ambulatory Orders Mirtazapine [Remeron] 15 mg PO HS 10/25/19 Oxybutynin [Ditropan] 5 mg PO BID 10/25/19 Tamsulosin [Flomax] 0.4 mg PO ONCE 10/25/19 Topiramate [Topamax] 100 mg PO 10/25/19 buPROPion [Wellbutrin Sr] 150 mg PO BID 10/25/19 Mirtazapine [Remeron] 15 mg PO HS 10/25/19 Oxybutynin [Ditropan] 5 mg PO BID 10/25/19 Tamsulosin [Flomax] 0.4 mg PO ONCE 10/25/19 Topiramate [Topamax] 100 mg PO 10/25/19 buPROPion [Wellbutrin Sr] 150 mg PO BID 10/25/19 Allergies/Adverse Reactions: Allergies Allergy/AdvReac Type Severity Reaction Status Date / Time No Known Drug Allergies Allergy Verified 10/25/19 11:44 Anes History & Medical History - Anesthetic History Anesthesia Complications: reports: No previous complications Family history of Anesthesia Complications: Denies Family history of Malignant Hyperthermia: Denies - Medical History Cardiovascular: reports: None Pulmonary: reports: Sleep apnea, CPAP use Gastrointestinal: reports: None Urinary: reports: Kidney stones Neuro: reports: None Musculoskeletal: reports: None, Other Endocrine/Autoimmune: reports: None Blood Disorders: reports: None Skin: reports: None Smoking Status: Never smoker Psychosocial: reports: Depression, Anxiety - Surgical History Urologic: Kidney stents Orthopedic: Other Exam General: Alert, Oriented x3 Dental: WNL Mouth Openin Fingerbreadth Neck Mobility: Normal Mallampati classification: I Thyromental Distance: 4-6 cm Respiratory: Lungs clear, Normal breath sounds, No respiratory distress Cardiovascular: Regular rate, Normal S1, Normal S2, No murmurs Abdomen: Normal bowel sounds Mental/Cognitive Status: Alert/Oriented X3 Cognitive Status: Within normal limits Plan Anesthesia Type: General Consent for Procedure(s) Verified and Reviewed: Yes Code Status: Attempt Resuscitation ASA classification: 2-Mild systemic disease Is this case an emergency?: No
[2019-11-01] MEDS ORDERED: ONDANSETRON 4 MG/2 ML VIAL IVP PRN ×2 (08:45→09:58)
[2019-11-01] MEDS ORDERED: diphenhydrAMINE INJ 50 MG/ML VIAL IVP PRN (08:45)
[2019-11-01] MEDS ORDERED: ACETAMINOPHEN 1,000 MG/100 ML 100 ML IV ONE (08:45)
[2019-11-01] MEDS ORDERED: ePHEDrine 50 MG/ML VIAL IVP PRN (08:45)
[2019-11-01] MEDS ORDERED: NALOXONE 0.4 MG/ML VIAL IVP PRN (08:45)
[2019-11-01] MEDS ORDERED: MORPHINE 2 MG/ML CARPUJECT IVP PRN (08:45)
[2019-11-01] MEDS ORDERED: HYDROmorphone 0.5 MG/0.5 ML SYRINGE IVP PRN (08:45)
[2019-11-01] MEDS ORDERED: fentaNYL 100 MCG/2 ML VIAL IVP PRN (08:45)
[2019-11-01] MEDS ORDERED: ATROPINE ABBOJECT 1 MG/10 ML SYRINGE IVP PRN (08:45)
[2019-11-01] MEDS ORDERED: LACTATED RINGERS 1,000 ML IV SCH (09:00)
[2019-11-01] MEDS ORDERED: BUPIVACAINE 0.25% PF 30 ML VIAL SUBQ ONE (09:13)
[2019-11-01] MEDS ORDERED: oxyCODONE 5 MG TABLET PO PRN (09:58)
[2019-11-01] MEDS ORDERED: HYDROmorphone 0.5 MG/0.5 ML SYRINGE ONE (10:01)
[2019-11-01] MEDS ORDERED: KETOROLAC 30 MG/ML VIAL IVP ONE (10:01)
[2019-11-01] MEDS ORDERED: fentaNYL 100 MCG/2 ML VIAL ONE (10:01)
--- NOTE | 2019-11-01 10:07 | ANESTHESIA POST OP EVALUATION ---
Anesthesia Post Eval - Post Anesthesia Eval Vitals: Last Vital Signs Temp 36.0 C L 11/01/19 09:46 Pulse 96 11/01/19 09:50 Resp 16 11/01/19 09:50 BP 149/97 H 11/01/19 09:50 Pulse Ox 100 11/01/19 09:50 CV Function Including HR & BP: positive: Stable Pain Control: positive: Satisfactory Nausea & Vomiting: positive: Negative Mental Status: positive: Baseline Respiratory Status: Airway Patent Hydration Status: Satisfactory Anesthesia Complications: positive: None
--- NOTE | 2019-11-01 10:07 | OPERATIVE REPORT ---
Operative Report - Other Other Information/Narrative: Date of Surgery: 01 November 2019 Pre-Op Diagnosis: Left cubital tunnel syndrome Procedure: Left cubital tunnel release, in situ Postop Diagnosis: Same Primary Surgeon: Sabino Hernandez Secondary Surgeon: Irineo Vieyra Complications: None Tourniquet Time: 42 minutes at 200 mmHg EBL: 5 cc Findings: Ulnar nerve encased in fibrous tissue about the medial epicondyle, very irritable nerve Indication For Surgery: 33-year-old male with insidious onset ulnar-sided hand numbness and pain that was intermittent until about 2 to 3 months ago when it became more dense and constant. It did not respond to conservative measures. The risks, benefits, and alternatives were discussed. Risks include pain, bleeding, infection, damage to nearby structures to include nerves and blood vessels, numbness, lack of symptom relief, need for further surgery, DVT, PE, stroke, and . Written consent was obtained. Procedure in Detail: The patient was met in the pre-operative hold area on the day of the procedure. The operative extremity was signed and questions were answered. The patient was brought to the operating room and a general anesthetic was administered. Supine position was used and bony prominences were padded. Standard prepping and draping was performed. A sterile tourniquet was applied. A time out confirmed patient identification, laterality, procedure, allergies, antibiotics, and images. An Esmarch was used to exsanguinate the limb and the tourniquet was elevated to 250 mmHg. Total tourniquet time was [] minutes. A 7 cm incision was made along the course of the ulnar nerve just posterior to the medial epicondyle. Scissor dissection was carried out and branches of the medial antebrachial cutaneous nerve were identified and protected. Scissor dissection was carried down to the cubital tunnel and it was opened just anterior to the attachment of the ligament on the olecranon. I took care to stay posterior to prevent future subluxation of the nerve. The ulnar nerve was identified and the cubital tunnel was dissected distally very carefully. I encountered the initial sensory branch to the capsule and the motor branches to the FCU and protected them. I sharply transected the fascia over the FCU to gain further access to the ulnar nerve as it passed deep into the muscle. blunt dissection was used to dissect the muscle and exposed the nerve further. I then released the fascia deep to the muscle and ensured the nerve was freely mobile distally without any compression points. I then moved proximal and followed the nerve up the medial arm a few centimeters taking care to protect any cutaneous branches. I freed the nerve proximally 6 cm from the medial epicondyle. I took care to leave as many veins as possible attached to the nerve. I left the nerve attached to the deep tissues within the cubital tunnel and did not destabilize or neural lysis from all surrounding tissues. I then inspected deep to the nerve an did not find any protruding osteophytes. The course of the nerve was smooth and no bony resection was necessary. I then irrigated the wound copiously and took him through a full range of motion. The nerve had no compression points and it very mildly subluxated anteriorly, but there was no snapping at the medial epicondyle. I then loosely approximated the fascia to the posterior soft tissues to provide additional support. I again moved him through a full range of motion and the nerve glided smoothly without instability or compression points. The wound was then closed in a layered fashion with 2-0 Vicryl in the dermis and running Monocryl in the skin. A sterile dressing was then applied and a bulky dressing was placed with the elbow nearly fully extended. He was awakened and transferred to the recovery room Postoperative plan: Gentle range of motion from 0-2 weeks. Follow-up at 2 weeks to cut Monocryl suture ends and assess the wound. I will remove the bulky dressing at that time and advance range of motion. No strengthening until 6 weeks.
[2019-11-01] MEDS ORDERED: KETOROLAC 15 MG/ML VIAL ONE (10:09)
[2019-11-01] MEDS ORDERED: MIDAZOLAM 2 MG/2 ML VIAL IVP PRN (10:20)
[2019-11-01] MEDS ORDERED: MIDAZOLAM 2 MG/2 ML VIAL ONE (10:25)
[2019-11-01] MEDS ORDERED: oxyCODONE 5 MG TABLET ONE (11:09)
[2019-11-01 11:36] VITALS: BP 133/80
== END 2019-11-01 07:11 | disposition home or self-care (01) ==
LOC: SDS 07:10
PROVIDERS: ATTEND Orthopaedic Surgery
DX: G56.22 Lesion of ulnar nerve, left upper limb (principal); G47.30 Sleep apnea, unspecified

== ENCOUNTER 2019-12-23 09:26 | Outpatient (CLI) | payer OTHER ==
[2019-12-23] MEDS ORDERED: BUFFERED LIDOCAINE 10 ML SYRINGE ONE (09:37)
[2019-12-23] MEDS ORDERED: GADOBUTROL 7.5 MMOL/7.5 ML VIAL ONE (09:38)
[2019-12-23] MEDS ORDERED: GADOBUTROL 7.5 MMOL/7.5 ML VIAL IVP ONE (11:02)
[2019-12-23] MEDS ORDERED: BUFFERED LIDOCAINE 10 ML SYRINGE IU ONE (11:03)
[2019-12-23] MEDS ORDERED: iohexoL-240 10 ML VIAL IVP ONE (11:04)
--- NOTE | 2019-12-23 11:36 | XRAY Report ---
PROCEDURE: Arthrogram Needle Placement INDICATIONS: RIGHT SHOULDER PAIN CONTRAST: CONTRAST: omnipaque/gada FLUOROSCOPY TIME: FLUORO TIME: 0.44 min and NUMBER IMAGES: 2 TECHNIQUE: The indications, alternatives, benefits, risks, and complications of the procedure were explained to the patient. Written informed consent was obtained and placed in the chart. The shoulder was examin ed fluoroscopically and a site for needle placement chosen for entry into the glenohumeral joint from an anterior approach. The skin was prepped and draped in the usual fashion, and 1% lidocaine infilt rated from skin down to joint capsule. A spinal needle was inserted into the glenohumeral joint, and a small amount of iodinated contrast media injected to confirm intra-articular placement of the need le tip. This was followed by approximately 12 mL dilute solution of a gadolinium containing MR contr ast agent. The needle was removed and a dressing was applied. The patient was given postprocedural instructions and sent to the MR suite for MR imaging. FINDINGS: A single fluoroscopic spot image demonstrates intra-articular location of injected iodinated contrast . IMPRESSION: Successful fluoroscopically guided administration of dilute Gadolinium solution into the shoulder larry nt for MR arthrogram. Reviewed by: Jean Claude Galvez MD on 12/23/2019 11:35 AM PDT Approved by: Jean Claude Galvez MD on 12/23/2019 11:35 AM PDT Station ID: [id number]
--- NOTE | 2019-12-23 14:11 | MRI Report ---
PROCEDURE: Arthrogram Shoulder RT INDICATIONS: RIGHT SHOULDER PAIN TECHNIQUE: After the administration of 12 mL of dilute intra-articular Gadolinium contrast, oblique coronal T1 a nd T2 spin echo with fat saturation, oblique sagittal T1 spin echo with and without fat saturation, o blique sagittal T2 fast spin echo with fat saturation, axial T1 spin echo with fat saturation through the shoulder. COMPARISON: None. FINDINGS: Image quality: Diagnostic with mild motion artifact. Rotator cuff: There is mild tendinopathy of the supraspinatus and infraspinatus without a discrete te ar. The subscapularis and teres minor also appear intact. No rotator cuff muscle atrophy on sagittal images. Bones and bursae: No bone marrow contusions or fractures. There is mild acromioclavicular joint dege neration. The acromion demonstrates mild lateral downsloping, without an os acromiale. There is a sm all amount of contrast within the subacromial/subdeltoid bursa likely related to contrast injection. Capsule and soft tissues: The labrum appears intact. The glenoid attachment of the anterior inferio r glenohumeral ligament is attenuated in appearance suggestive of a sprain or mild partial tearing. T he long head of the biceps tendon demonstrates normal location and morphology. The biceps americo appe ars intact within the rotator interval. The coracohumeral ligament is of normal thickness. No intra- articular bodies. IMPRESSION: 1. Mild tendinopathy of the superior cuff without a discrete tear. 2. Mild acromioclavicular joint degeneration with mild lateral downsloping of the acromion. 3. Attenuated appearance of the clinoid attachment of the anterior inferior clinical humeral ligament suggestive of a sprain or mild partial tear. Reviewed by: Lukasz Nava MD on 12/23/2019 2:09 PM PDT Approved by: Lukasz Nava MD on 12/23/2019 2:09 PM PDT Station ID: [id number]
== END 2019-12-23 09:27 | disposition home or self-care (01) ==
LOC: DI 09:26
PROVIDERS: ATTEND Orthopaedic Surgery
DX: M75.81 Other shoulder lesions, right shoulder (principal); R93.6 Abnormal findings on diagnostic imaging of limbs
CPT/HCPCS: 23350; 73222; 77002; A9585; Q9966

== ENCOUNTER 2020-11-14 13:05 | Emergency (ER) | payer OTHER ==
[2020-11-14] MEDS ORDERED: PHENobarbital 65 MG/ML VIAL IV STA (14:01)
[2020-11-14] MEDS ORDERED: SODIUM CHLORIDE 0.9% 1,000 ML IV STA (14:01)
[2020-11-14 14:16] LABS: BASOPHILS % (AUTO) 0.5 %; EOSINOPHILS % (AUTO) 0.3 %; HCT - HEMATOCRIT 46.7 % (42.0-52.0); HGB - HEMOGLOBIN 17.1 g/dL (14.0-18.0); LYMPHOCYTES # (AUTO) 2.7 10^3/uL (1.5-3.5); LYMPHOCYTES % (AUTO) 34.9 %; MEAN CORPUSCULAR HEMOGLOBIN 33.5 pg (27.0-31.0); MEAN CORPUSCULAR HGB CONC 36.6 g/dL (32.0-36.0); MEAN CORPUSCULAR VOLUME 91.6 fL (80.0-94.0); MEAN PLATELET VOLUME 10.3 fL (7.4-11.4); MONOCYTES # (AUTO) 0.4 10^3/uL (0.0-1.0); MONOCYTES % (AUTO) 4.5 %; NEUTROPHILS # (AUTO) 4.6 10^3/uL (1.5-6.6); NEUTROPHILS % (AUTO) 59.5 %; PLT - PLATELET COUNT 257 10^3/uL (130-450); RED CELL DISTRIBUTION WIDTH 12.1 % (12.0-15.0); WHITE BLOOD COUNT 7.7 x10^3/uL (4.8-10.8)
[2020-11-14 14:29] LABS: ALBUMIN 5.1 g/dL (3.2-5.5); ALBUMIN/GLOBULIN RATIO 1.5 (1.0-2.2); BILIRUBIN,TOTAL 1.4 mg/dL (0.2-1.0); CALCIUM 9.1 mg/dL (8.5-10.3); CREATININE 0.7 mg/dL (0.6-1.2); ETOH - ETHANOL 279.1 mg/dL; TOTAL PROTEIN 8.4 g/dL (6.7-8.2)
[2020-11-14 16:07] LABS: MUDS CUTOFF CONCENTRATIONS CUTOFF CONC BELOW:
[2020-11-14 16:19] LABS: AMPHETAMINE SCREEN,URINE NEGATIVE (NEGATIVE); BARBITURATE SCREEN,UR POSITIVE (NEGATIVE); BENZODIAZEPINES SCREEN, URINE NEGATIVE (NEGATIVE); COCAINE SCREEN URINE NEGATIVE (NEGATIVE); METHADONE SCREEN, URINE NEGATIVE (NEGATIVE); METHAMPHETAMINES SCREEN, URINE NEGATIVE (NEGATIVE); OPIATE SCREEN, URINE NEGATIVE (NEGATIVE); THC CANNABINOID SCREEN, URINE NEGATIVE (NEGATIVE); TRICYCLIC ANTIDEPRESSANT,URINE NEGATIVE (NEGATIVE)
[2020-11-14 16:20] LABS: OXYCODONE SCREEN, URINE NEGATIVE (NEGATIVE); PROPOXYPHENE SCREEN, URINE NEGATIVE (NEGATIVE)
[2020-11-14 16:27] LABS: B. PARAPERTUSSIS- RESP PCR PAN NOT DETECTED; B. PERTUSSIS- RESP PCR PANEL NOT DETECTED; C. PNEUMONIAE- RESP PCR PANEL NOT DETECTED; CORONAVIRUS 229E-RESP PCR NOT DETECTED; CORONAVIRUS HKU1-RESP PCR NOT DETECTED; CORONAVIRUS NL63-RESP PCR NOT DETECTED; CORONAVIRUS OC43-RESP PCR NOT DETECTED; HUMAN METAPNEUMOVIRUS NOT DETECTED; INFLUENZA A- RESP PCR PANEL NOT DETECTED; INFLUENZA B - RESP PCR PANEL NOT DETECTED; M. PNEUMONIAE- RESP PCR PANEL NOT DETECTED; PARAINFLUENZA VIRUS 1 NOT DETECTED; PARAINFLUENZA VIRUS 2 NOT DETECTED; PARAINFLUENZA VIRUS 3 NOT DETECTED; PARAINFLUENZA VIRUS 4 NOT DETECTED; RHINOVIRUS/ENTEROVIRUS NOT DETECTED; RSV- RESP PCR PANEL NOT DETECTED; SARS-CoV-2 -RESP PCR PANEL NOT DETECTED
[2020-11-14] MEDS ORDERED: LORazepam 2 MG/ML VIAL IVP STA ×3 (16:27→23:27)
--- NOTE | 2020-11-14 19:38 | ED Physician Documentation ---
History of Present Illness - Stated complaint Stated Complaint: PALPUTATIONS - Chief complaint Chief Complaint: MHE - History obtained from History obtained from: Patient - Additonal information Additional information: Patient comes emergency department chief complaint of anxiety and depression, along with "I want to go to detox". Patient states is not feeling suicidal and his main concern is that he has been binge drinking for the last several months and feels as though he is getting out of control again. The patient has a history of alcohol abuse and has gone to detox and rehab before. He also has a history of inpatient psychiatric treatment for his anxiety and depression. The patient is in the [place] and states he feels desperate to get out and get back to where his family is in [facility]. He denies any substance abuse of any other kind. Patient states that his last drink was about 8:00 this morning. He states that he has been going on binges for anywhere from several days to some weeks, and then will leave off the drinking for anywhere from days to weeks. He states his last binge was about a week. He is beginning to feel a little bit shaky and has been feeling as though he is having palpitations. Review of Systems Ten Systems: 10 systems reviewed and negative Constitutional: reports: Reviewed and negative Eyes: reports: Reviewed and negative Ears: reports: Reviewed and negative Nose: reports: Reviewed and negative Throat: reports: Reviewed and negative Cardiac: reports: Palpitations Respiratory: reports: Reviewed and negative GI: reports: Reviewed and negative : reports: Reviewed and negative Skin: reports: Reviewed and negative Musculoskeletal: reports: Reviewed and negative Neurologic: reports: Reviewed and negative Psychiatric: reports: Reviewed and negative Endocrine: reports: Reviewed and negative Immunocompromised: reports: Reviewed and negative PD PAST MEDICAL HISTORY - Past Medical History Cardiovascular: None Respiratory: Sleep apnea, CPAP use Neuro: None Endocrine/Autoimmune: None GI: None : Kidney stones HEENT: None Psych: Depression, Anxiety, Other Musculoskeletal: None, Other Derm: None - Past Surgical History Past Surgical History: Yes Ortho: Other - Present Medications Home Medications: Ambulatory Orders Medication Instructions Recorded Confirmed Mirtazapine [Remeron] 15 mg PO HS 10/25/19 11/14/20 Topiramate [Topamax] 100 mg PO DAILY 10/25/19 11/14/20 buPROPion [Wellbutrin Sr] 150 mg PO BID 10/25/19 11/14/20 FLUoxetine [PROzac] 10 mg PO DAILY 11/14/20 11/14/20 Propranolol [Inderal] 10 mg PO DAILY PRN 11/14/20 11/14/20 - Allergies Allergies/Adverse Reactions: Allergies Allergy/AdvReac Type Severity Reaction Status Date / Time No Known Drug Allergies Allergy Verified 11/14/20 13:11 - Social History Does the pt smoke?: No Smoking Status: Never smoker Does the pt drink ETOH?: Yes Does the pt have substance abuse?: No - Immunizations Immunizations are current?: Yes - POLST Patient has POLST: No PD ED PE NORMAL - Vitals Vital signs reviewed: Yes - General General: Alert and oriented X 3, No acute distress, Well developed/nourished - HEENT HEENT: Atraumatic, PERRL, EOMI, Moist mucous membranes - Neck Neck: Supple, no meningeal sign - Cardiac Cardiac: No murmur, Strong equal pulses, Other (Mildly tachycardic rate, regular rhythm.) - Respiratory Respiratory: No respiratory distress, Clear bilaterally - Abdomen Abdomen: Soft, Non tender, Non distended - Derm Derm: Normal color, Warm and dry, No rash - Extremities Extremities: No deformity, No edema, No calf tenderness / cord - Neuro Neuro: Alert and oriented X 3, yard worker 2-12 intact, Normal speech - Psych Psych: Normal mood, Normal affect Results - Vitals Vitals: Vital Signs - 24 hr 11/14/20 11/14/20 11/14/20 13:13 20:30 21:28 Temperature 37.3 C Heart Rate 105 H 89 84 Respiratory 18 18 18 Rate Blood Pressure 148/98 H 149/88 H 149/88 H O2 Saturation 97 97 95 Oxygen O2 Source Room air - EKG (time done) 1317 Rate: Rate (enter#) (100) Rhythm: Sinus tachycardia [place] Line: Normal Intervals: Normal GA QRS: Normal Ischemia: Other (borderline ST elevation). No: ST elevation c/w ischemia, T wave inversion Compare to prior EKG: Old EKG unavailable - Labs Labs: Laboratory Tests 11/14/20 11/14/20 11/14/20 14:11 14:11 15:30 WBC 7.7 RBC 5.10 Hgb 17.1 Hct 46.7 MCV 91.6 MCH 33.5 H MCHC 36.6 H RDW 12.1 Plt Count 257 MPV 10.3 Neut # (Auto) 4.6 Lymph # (Auto) 2.7 Gaines # (Auto) 0.4 Eos # (Auto) 0.0 Baso # (Auto) 0.0 Absolute Nucleated RBC 0.00 Nucleated RBC % 0.0 Sodium 145 Potassium 4.0 Chloride 109 Carbon Dioxide 22 Anion Gap 14.0 H BUN 6 Creatinine 0.7 Estimated GFR (MDRD) 129 Glucose 117 H Calcium 9.1 Total Bilirubin 1.4 H AST 40 ALT 43 Alkaline Phosphatase 86 Total Protein 8.4 H Albumin 5.1 Globulin 3.3 Albumin/Globulin Ratio 1.5 Lipase 31 Nasal Adenovirus (PCR) NOT DETECTED Nasal B. parapertussis DNA (PCR) NOT DETECTED Nasal Coronavir 229E PCR NOT DETECTED Nasal Coronavir HKU1 PCR NOT DETECTED Nasal Coronavir NL63 PCR NOT DETECTED Nasal Coronavir OC43 PCR NOT DETECTED Nasal Enterovir/Rhinovir PCR NOT DETECTED Nasal Influenza B PCR NOT DETECTED Nasal Influenza A PCR NOT DETECTED Nasal Parainfluen 1 PCR NOT DETECTED Nasal Parainfluen 2 PCR NOT DETECTED Nasal Parainfluen 3 PCR NOT DETECTED Nasal Parainfluen 4 PCR NOT DETECTED Nasal RSV (PCR) NOT DETECTED Nasal B.pertussis DNA PCR NOT DETECTED Nasal C.pneumoniae (PCR) NOT DETECTED Gustavo Human Metapneumo PCR NOT DETECTED Nasal M.pneumoniae (PCR) NOT DETECTED Nasal SARS-CoV-2 (PCR) NOT DETECTED Urine Opiates Screen Ur Oxycodone Screen Urine Methadone Screen Ur Propoxyphene Screen Ur Barbiturates Screen Ur Tricyclics Screen Ur Phencyclidine Scrn Ur Amphetamine Screen U Methamphetamines Scrn U Benzodiazepines Scrn Urine Cocaine Screen U Cannabinoids Screen Ethyl Alcohol 279.1 11/14/20 11/14/20 11/14/20 16:00 20:16 22:09 WBC RBC Hgb Hct MCV MCH MCHC RDW Plt Count MPV Neut # (Auto) Lymph # (Auto) Gaines # (Auto) Eos # (Auto) Baso # (Auto) Absolute Nucleated RBC Nucleated RBC % Sodium Potassium Chloride Carbon Dioxide Anion Gap BUN Creatinine Estimated GFR (MDRD) Glucose Calcium Total Bilirubin AST ALT Alkaline Phosphatase Total Protein Albumin Globulin Albumin/Globulin Ratio Lipase Nasal Adenovirus (PCR) Nasal B. parapertussis DNA (PCR) Nasal Coronavir 229E PCR Nasal Coronavir HKU1 PCR Nasal Coronavir NL63 PCR Nasal Coronavir OC43 PCR Nasal Enterovir/Rhinovir PCR Nasal Influenza B PCR Nasal Influenza A PCR Nasal Parainfluen 1 PCR Nasal Parainfluen 2 PCR Nasal Parainfluen 3 PCR Nasal Parainfluen 4 PCR Nasal RSV (PCR) Nasal B.pertussis DNA PCR Nasal C.pneumoniae (PCR) Gustavo Human Metapneumo PCR Nasal M.pneumoniae (PCR) Nasal SARS-CoV-2 (PCR) Urine Opiates Screen NEGATIVE Ur Oxycodone Screen NEGATIVE Urine Methadone Screen NEGATIVE Ur Propoxyphene Screen NEGATIVE Ur Barbiturates Screen POSITIVE H Ur Tricyclics Screen NEGATIVE Ur Phencyclidine Scrn NEGATIVE Ur Amphetamine Screen NEGATIVE U Methamphetamines Scrn NEGATIVE U Benzodiazepines Scrn NEGATIVE Urine Cocaine Screen NEGATIVE U Cannabinoids Screen NEGATIVE Ethyl Alcohol 141.4 88.0 PD MEDICAL DECISION MAKING - ED course Complexity details: reviewed results, re-evaluated patient, considered differential, d/w patient ED course: Social work was consulted and did begin the process of trying to get the patient to a detox facility. [facility] initially did not accept the patient because they felt that his issue is mainly substance abuse, not mental health. Crisis center rejected the patient, as did [facility], because of his Sleep apnea on CPAP. At this point in time, the social services coordinator has continued to work on options for the patient. He will be signed out to the oncoming emergency physician, Dr. Solomon, pending final disposition. He has been treated in the ED so far with IV fluids, Ativan and phenobarbital. Departure - Departure Clinical Impression: Alcohol abuse Depression Qualifiers: Depression Type: major depressive disorder Major depression recurrence: recurrent Active/Remission status: currently active Major depression episode severity: moderate Qualified Code(s): F33.1 - Major depressive disorder, recurrent, moderate Condition: Stable
--- NOTE | 2020-11-15 04:43 | ED Physician Documentation ---
ED Addendum - Addendum Addendum: 11/15/20 04:40Patient was doing well at the time of change of shift. Subsequently did get slightly jittery and asked for more Ativan which he was given. His repeat blood alcohol level subsequently came down to the legal limit at 80. Nursing then called [facility] back as the impression was he might need to go there prior to going to [place] for detox. However nursing was told that medication was not doing detox and the patient did not have indication for psychiatric care per se so declined transfer. They tried calling the detox facility again but no one was answering at this time. We presumably will need to wait till morning for them to be available again. The patient was updated and is agreeable to stay till the morning. 11/15/20 04:43
[2020-11-15 08:14] VITALS: BP 168/77
[2020-11-15] MEDS ORDERED: chlordiazePOXIDE 25 MG CAPSULE PO STA (09:52)
--- NOTE | 2020-11-15 10:26 | ED Physician Documentation ---
ED Addendum - Addendum Addendum: The [facility] has found accommodations for the patient in [place] for detox and rehab. A friend will stay with him today. He will be on a plane later this afternoon. This document was made in part using voice recognition software. While efforts are made to proofread this document, sound alike and grammatical errors may occur. Departure - Departure Disposition: 01 Home, Self Care Clinical Impression: Alcohol abuse Depression Qualifiers: Depression Type: major depressive disorder Major depression recurrence: recurrent Active/Remission status: currently active Major depression episode severity: moderate Qualified Code(s): F33.1 - Major depressive disorder, recurrent, moderate Condition: Stable Instructions: ED Alcohol Abuse Follow-Up: your,doctor in 1 week [Other] Comments: You are to go to [facility] today for treatment. Stay away from alcohol.
== END 2020-11-15 10:49 | disposition home or self-care (01) ==
LOC: ED 13:05
DX: F10.10 Alcohol abuse, uncomplicated (principal); F33.1 Major depressive disorder, recurrent, moderate; F41.9 Anxiety disorder, unspecified; R00.0 Tachycardia, unspecified; Z20.822 Contact with and (suspected) exposure to COVID-19
CPT/HCPCS: 0202U; 36415; 80053; 80306; 80320; 83690; 85025; 93005; 96374; 96375; 96376; 99284; 99285; A9270; J2060

== ENCOUNTER 2020-11-15 17:15 | Emergency (ER) | payer OTHER ==
--- NOTE | 2020-11-15 19:53 | ED Physician Documentation ---
PD HPI NVD - Stated complaint Stated Complaint: WITHDRAWLS,DETOX - Chief complaint Chief Complaint: General - History obtained from History obtained from: Patient - History of Present Illness Timing - onset: Today (had been here just last evening to this morning for alcohol and was to go to rehab through [facility] but delayed until Thursday, so needing meds for withdrawal. Had not been given Rx as was thought to be at rehab by this evening. Having shaky and nausea.) Timing - duration: Days (some symptoms last evening and overnight, but treated while in ER. Symptoms back during day today as no Rx through PCP at [facility] and not to Rehab as yet.) Timing - details: Gradual onset, Still present Associated symptoms: Loss of appetite. No: Fever, Abdominal pain, Near syncope / syncope Contributing factors: Alcohol use (in withdrawal, with last alcohol yesterday.) Improved by: No: Eating Worsened by: No: Eating Similar symptoms before: Diagnosis (alcohol withdrawal in the past. No history of seizures.) Recently seen: Emergency Dept Review of Systems Constitutional: denies: Fever, Chills Nose: denies: Rhinorrhea / runny nose, Congestion Throat: denies: Sore throat Respiratory: denies: Cough GI: reports: Abdominal Pain, Nausea. denies: Vomiting, Diarrhea Skin: denies: Rash, Lesions Neurologic: reports: Other (shaky). denies: Focal weakness, Numbness PD PAST MEDICAL HISTORY - Past Medical History Cardiovascular: None Respiratory: Sleep apnea, CPAP use Neuro: None Endocrine/Autoimmune: None GI: None : Kidney stones HEENT: None Psych: Depression, Anxiety, Other Musculoskeletal: None, Other Derm: None - Past Surgical History Past Surgical History: Yes Ortho: Other - Present Medications Home Medications: Ambulatory Orders Medication Instructions Recorded Confirmed Mirtazapine [Remeron] 15 mg PO HS 10/25/19 11/14/20 Topiramate [Topamax] 100 mg PO DAILY 10/25/19 11/14/20 buPROPion [Wellbutrin Sr] 150 mg PO BID 10/25/19 11/14/20 FLUoxetine [PROzac] 10 mg PO DAILY 11/14/20 11/14/20 Propranolol [Inderal] 10 mg PO DAILY PRN 11/14/20 11/14/20 LORazepam [Ativan] 1 mg PO Q8H PRN #12 tablet 11/15/20 Ondansetron Odt [Zofran] 4 mg TL Q6H PRN #15 tablet 11/15/20 PHENobarbitaL [Phenobarbital] 30 mg PO BID #6 tablet 11/15/20 - Allergies Allergies/Adverse Reactions: Allergies Allergy/AdvReac Type Severity Reaction Status Date / Time No Known Drug Allergies Allergy Verified 11/15/20 17:24 - Social History Does the pt smoke?: No Smoking Status: Never smoker Does the pt drink ETOH?: Yes Does the pt have substance abuse?: No - Immunizations Immunizations are current?: Yes - POLST Patient has POLST: No PD ED PE NORMAL - Vitals Vital signs reviewed: Yes (hypertensive without tachycardia) - General General: Alert and oriented X 3, No acute distress, Well developed/nourished - HEENT HEENT: Pharynx benign - Neck Neck: Supple, no meningeal sign, No adenopathy - Cardiac Cardiac: RRR, No murmur - Respiratory Respiratory: Clear bilaterally - Abdomen Abdomen: Soft, Non tender - Derm Derm: Normal color, Warm and dry - Extremities Extremities: No tenderness to palpate, Normal ROM s pain - Neuro Neuro: Alert and oriented X 3, No motor deficit, Normal speech Results - Vitals Vitals: Oxygen O2 Source Room air PD MEDICAL DECISION MAKING - ED course Complexity details: reviewed old records, re-evaluated patient (having some withdrawal but not too bad as yet. Discussed with him IM/PO meds rather than IV and he is okay trying it. He did feel better with IM Phenobarb. Gave PO Ativan as well to complement the med. Gave Rx for 4 days more. ), considered differential (had been here just last evening to this morning for alcohol and was to go to rehab through [facility] but delayed until Thursday, so needing meds for withdrawal. Had not been given Rx as was thought to be at rehab by this evening. Having shaky and nausea. ), d/w patient Departure - Departure Disposition: 01 Home, Self Care Clinical Impression: Alcohol withdrawal Qualifiers: Complication of substance-induced condition: uncomplicated Qualified Code(s): F10.230 - Alcohol dependence with withdrawal, uncomplicated Condition: Stable Record reviewed to determine appropriate education?: Yes Instructions: ED Withdrawal Alcohol Follow-Up: JOSE ALEJANDRO Baker [Provider Group] Prescriptions: LORazepam [Ativan] 1 mg PO Q8H PRN #12 tablet PRN Reason: Anxiety PHENobarbitaL [Phenobarbital] 30 mg PO BID #6 tablet Ondansetron Odt [Zofran] 4 mg TL Q6H PRN #15 tablet PRN Reason: Nausea / Vomiting Comments: Continue usual medications. Stay well-hydrated. Ondansetron if needed for nausea. For the withdrawal symptoms, use the phenobarbital 30 mg twice daily for 2 days and then once daily for 2 days. To this add lorazepam every 8 hours if needed for withdrawal symptoms with decreasing use of it over the next several days. Return if worsening symptoms or problems. Otherwise follow-up with the rehab facility as intended on Thursday. Discharge Date/Time: 11/15/20 21:14
[2020-11-15] MEDS ORDERED: ONDANSETRON ODT 4 MG TABLET TL STA (20:06)
[2020-11-15] MEDS ORDERED: ACETAMINOPHEN 325 MG TABLET PO STA (20:06)
[2020-11-15] MEDS ORDERED: PHENobarbital 65 MG/ML VIAL IM STA (20:06)
[2020-11-15] MEDS ORDERED: LORazepam 1 MG TABLET PO STA (20:57)
[2020-11-15 21:05] VITALS: BP 139/93
== END 2020-11-15 21:14 | disposition home or self-care (01) ==
LOC: ED 17:15
DX: F10.230 Alcohol dependence with withdrawal, uncomplicated (principal); G47.30 Sleep apnea, unspecified; F32.9 Major depressive disorder, single episode, unspecified; F41.9 Anxiety disorder, unspecified; Z79.899 Other long term (current) drug therapy
CPT/HCPCS: 96372; 99283; A9270; J8499; Q0162

== ENCOUNTER 2021-01-11 08:00 | Outpatient (CLI) | payer OTHER ==
[2021-01-12 00:05] LABS: CHLAMYDIA TRACHOMATIS DNA NEGATIVE (NEGATIVE); NEISSERIA GONORRHOEAE DNA NEGATIVE (NEGATIVE)
[2021-01-14 12:06] LABS: HEPATITIS C ANTIBODY NON-REACTIVE (NON-REACTIVE)
[2021-01-14 12:10] LABS: HIV AG/AB 4TH GEN NON-REACTIVE (NON-REACTIVE)
[2021-01-15 13:20] LABS: HSV 2 IGG TYPE SPECIFIC AB <0.90 index
== END 2021-01-11 23:59 | disposition home or self-care (01) ==
LOC: LAB.N 08:00
PROVIDERS: ATTEND Family Medicine
DX: Z11.3 Encounter for screening for infections with a predominantly sexual mode of transmission (principal)
CPT/HCPCS: 36415; 81599; 86592; 86695; 86696; 86803; 87389; 87491; 87591; 87661